=== PATIENT | female | born 1945 | race Two or more races ===

== ENCOUNTER 2025-03-02 16:12 | Inpatient (IN) | payer MEDICARE, OTHER, MEDICAID ==
[~2025-03-02] VITALS: Ht 157.5 cm; Wt 62.5 kg
--- NOTE | 2025-03-02 18:29 | ED.PDOC ---
History of Present Illness HPI Comments 79F presents to the ER w/ prior MHx of arthritis, Stage 4 Auto Immune Jewett; SHx of Cholecystectomy, Tonsillectomy, Back Sx, Right leg Sx and the c/c of Gen weak. Pt reports on being "very very tired" for the past 3 weeks w/ CP/SOB. Denies chills, fever, N/V/D. Denies any other associated symptom's, modifiers, or recent injuries or sick contact at this time. Chief Complaint: General Weakness Time Seen by MD: 18:15 Reviewed Notes: Nurses Notes, Medications, Allergies Allergies: Uncoded Allergies: DUST (Allergy, Unknown, 03/02/25) Information Source: Patient, Spouse Mode of Arrival: Ambulatory Severity: Moderate Timing: Weeks Duration: Since onset Prehospital treatment: None Past Medical History PAST MEDICAL HISTORY: Arthritis Past Medical History (Other): Stage 4 Autoimmune Jewett Surgical History: Cholecystectomy, Tonsillectomy Surgical History (Other): Back Sx, Right Leg Sx IT PROJECT LEAD History: No Pertinent IT PROJECT LEAD History Family History Family History: Reviewed,noncontributory to illness, Family hx of DM Social History Smoker: Cigarettes Alcohol: Denies ETOH Use Drugs: Denies Drug Use Lives In: Home Constitutional: reports: weakness; denies: chills, diaphoresis, fatigue, fever, malaise, sweats, others EENTM: denies: blurred vision, double vision, ear bleeding, ear discharge, ear drainage, ear pain, ear ringing, eye pain, eye redness, hearing loss, mouth pain, mouth swelling, nasal discharge, nose bleeding, nose congestion, nose pain, photophobia, tearing, throat pain, throat swelling, voice changes, others Respiratory: reports: shortness of breath; denies: cough, hemoptysis, orthopnea, SOB at rest, SOB with excertion, stridor, wheezing, others Cardiovascular: reports: chest pain; denies: dizzy spells, diaphoresis, Dyspnea on exertion, edema, irregular heart beat, left arm pain, lightheadedness, palpitations, PND, syncope, others Gastrointestinal: denies: abdomen distended, abdominal pain, blood streaked bowels, constipated, diarrhea, dysphagia, difficulty swallowing, hematemesis, melena, nausea, poor appetite, poor fluid intake, rectal bleeding, rectal pain, vomiting, others Genitourinary: denies: abnormal vagina bleeding, burning, dyspareunia, dysuria, flank pain, frequency, hematuria, incontinence, pain, , vagina discharge, urgency, others Neurological: denies: dizziness, fainting, headache, left sided numbness, left sided weakness, numbness, paresthesia, pre-existing deficit, right sided numbness, right sided weakness, seizure, speech problems, tingling, tremors, weakness, others Musculoskeletal: denies: back pain, gout, joint pain, joint swelling, muscle pain, muscle stiffness, neck pain, others Integumetry: denies: bruises, change in color, change in hair/nails, dryness, laceration, lesions, lumps, rash, wounds, others Allergic/Immunocompromised: denies: Difficulty Healing, Frequent Infections, Hives, Itching, others Hematologic/Lymphatic: denies: anemia, blood clots, easy bleeding, easy bruising, swollen glands, others Endocrine: denies: excessive hunger, excessive sweating, excessive thirst, excessive urination, flushing, intolerance to cold, intolerance to heat, unexplained weight gain, unexplained weight loss, others Psychiatric: denies: anxiety, bipolar disorder, depression, hopeless, panic disorder, schizophrenia, sleepless, suicidal, others All Other Systems: Reviewed and Negative Physical Exam General Appearance: Moderate Distress HEENT: Pale Conjuntivae (L), Pale Conjuntivae (R), Pharynx Normal, TMs Normal Neck: Full Range of Motion, Non-Tender, Normal, Normal Inspection Respiratory: Chest Non-Tender, Lungs Clear, No Accessory Muscle Use, No Respiratory Distress, Normal Breath Sounds Cardiovascular: No Edema, No JVD, No Murmur, No Gallop, Normal Peripheral Pulses, Regular Rate/Rhythm Breast Exam: Deferred Gastrointestinal: No Organomegaly, Non Tender, No Pulsatile Mass, Normal Bowel Sounds, Soft Genitalia: Deferred Pelvic: Deferred Rectal: Deferred Extremities: No calf tenderness, Normal capillary refill, Normal inspection, Normal range of motion, Non-tender, No pedal edema Musculoskeletal : Apperance: Normal Neurologic: Alert, executive search consultant II-XII nml as Tested, Motor Weakness, Normal Affect, Normal Mood, No Sensory Deficits Cerebellar Function: Normal Reflexes: Normal Skin: Dry, Normal Color, Warm Lymphatic: No Adenopathy Was a procedure done? Was a procedure done?: No EKG EKG : Pulse Rate (adult): 82 Elida: Normal Cardiac Rhythm: NSR Block: None Hypertrophy: None ST: Normal Differential Dx Considerations may include: ACS, PR, generalized weakness, electrolyte imbalance X-Ray, Labs, Meds, VS Vital Signs Date Time Temp Pulse Resp B/P (MAP) Pulse Ox O2 Delivery O2 Flow Rate FiO2 03/02/25 18:29 82 03/02/25 16:31 82 03/02/25 16:12 97.3 89 14 139/87 (104) 98 97.3 Lab Test 03/02/25 19:24 03/02/25 18:39 03/02/25 16:34 Range/Units Troponin I High Sensitivity < 3 L < 3 L </=34 ng/L White Blood Count 6.6 4.4-10.8 10^3/uL Red Blood Count 4.45 4.0-5.20 10^6/uL Hemoglobin 13.2 12.2-16.2 g/dL Hematocrit 38.4 36.0-46.0 % Mean Corpuscular Volume 86.2 80.0-100.0 fL Mean Corpuscular Hemoglobin 29.5 28.0-32.0 pg Mean Corpuscular Hemoglobin Concent 34.3 32.0-36.0 g/dL Red Cell Distribution Width 17.0 H 11.8-14.3 % Platelet Count 316 140-450 10^3/uL Mean Platelet Volume 8.2 6.9-10.8 fL Neutrophils (%) (Auto) 68.5 37.0-80.0 % Lymphocytes (%) (Auto) 18.3 10.0-50.0 % Monocytes (%) (Auto) 10.1 0.0-12.0 % Eosinophils (%) (Auto) 2.7 0.0-7.0 % Basophils (%) (Auto) 0.4 0.0-2.0 % Neutrophils # (Auto) 4.5 1.6-8.6 10 ^3/uL Lymphocytes # (Auto) 1.2 0.4-5.4 10 ^3/uL Monocytes # (Auto) 0.7 0-1.3 10 ^3/uL Eosinophils # (Auto) 0.2 0-0.8 10 ^3/uL Basophils # (Auto) 0 0-0.2 10 ^3/uL Nucleated Red Blood Cells 0.1 % Sodium Level 139 136-145 mmol/L Potassium Level 3.8 3.5-5.1 mmol/L Chloride Level 106 98-107 mmol/L Carbon Dioxide Level 27 20-31 mmol/L Anion Gap 6 5-15 Blood Urea Nitrogen 18 9-23 mg/dL Creatinine 0.82 0.550-1.02 mg/dL Glomerular Filtration Rate Calc 73 >90 mL/min BUN/Creatinine Ratio 22.0 H 10.0-20.0 Serum Glucose 89 74-106 mg/dL Calcium Level 9.6 8.7-10.4 mg/dL POC Glucose 82 70-106 mg/dl IV Hep-Lock has been established The CBC and chemistry panel within normal limits The troponin levels negative The patient was being admitted at this time The chest x-ray shows: No sign of any abnormalities The patient was being admitted at this time Images Reviewed?: Images reviewed and evaluated by me Time of 1ST Reevaluation: 18:45 Reevaluation 1ST: Unchanged Patient Education/Counseling: Diagnosis, Treatment, Prognosis Family Education/Counseling: Diagnosis, Treatment, Prognosis Departure 1 Departure Time of Disposition: 20:13 Impression: Primary Impression: Autonomic dysfunction Additional Impressions: Acute chest pain Acute myocardial ischemia Disposition: 09 ADMITTED INPATIENT Admit to: Tele Condition: Fair Critical Care Note Critical Care Time?: No Stability Stability form required: Yes Unstable for transfer: Telemetry monitoring (Telemetry monitoring required), ED Physician Assesment (Clinical assesment) Heart Score Heart Score: Heart Score Response (Comments) Value History Moderate Suspicious 1 EKG Normal 0 Age >65 2 Risk Factors 1 or 2 risk factors 1 Troponin Normal limit 0 Total 4 I personally scribed for SHAKIRA DARDEN MD ([email or web address]) on 03/02/25 at 18:29. Electronically submitted by Caleb Santos ([email or web address]). SHAKIRA DARDEN MD March 02, 2025 18:29
--- NOTE | 2025-03-02 18:44 | DVH ---
XY CHEST TWO VIEWS ROUTINE INDICATION: weakness TECHNIQUE: Two views of the chest COMPARISON: None FINDINGS/IMPRESSION: LUNGS: No pleural effusion, consolidation, or pneumothorax MEDIASTINUM: Unremarkable BONES: No acute osseous abnormality OTHER: None
[2025-03-02 19:10] LABS: Basophils # (auto) 0 10 ^3/uL (0-0.2); Basophils % (auto) 0.4 % (0.0-2.0); Eosinophils # (auto) 0.2 10 ^3/uL (0-0.8); Eosinophils % (auto) 2.7 % (0.0-7.0); Hematocrit 38.4 % (36.0-46.0); Hemoglobin 13.2 g/dL (12.2-16.2); Lymphocytes # (auto) 1.2 10 ^3/uL (0.4-5.4); Lymphocytes % (auto) 18.3 % (10.0-50.0); Mean Corpuscular Hemoglobin 29.5 pg (28.0-32.0); Mean Corpuscular Hgb Conc. 34.3 g/dL (32.0-36.0); Mean Corpuscular Volume 86.2 fL (80.0-100.0); Monocytes # (auto) 0.7 10 ^3/uL (0-1.3); Monocytes % (auto) 10.1 % (0.0-12.0); Neutrophils # (auto) 4.5 10 ^3/uL (1.6-8.6); Neutrophils % (auto) 68.5 % (37.0-80.0); Nucleated Red Blood Cells % 0.1 %; Platelet Count (auto) 316 10^3/uL (140-450); Red Blood Cells 4.45 10^6/uL (4.0-5.20); White Blood Cell 6.6 10^3/uL (4.4-10.8)
[2025-03-02 19:17] LABS: Chloride 106 mmol/L (98-107); Potassium 3.8 mmol/L (3.5-5.1); Sodium 139 mmol/L (136-145)
[2025-03-02 19:18] LABS: Anion Gap 6 (5-15); Carbon Dioxide 27 mmol/L (20-31)
[2025-03-02 19:19] LABS: Calcium 9.6 mg/dL (8.7-10.4)
[2025-03-02 19:23] LABS: Blood Urea Nitrogen 18 mg/dL (9-23); Glucose 89 mg/dL (74-106)
--- NOTE | 2025-03-02 20:34 | ECG ---
[facility] Test Date: 2025-03-02 Test Time: 16:31:16 Pat Name: TRINA GRIDER Department: ER Room: 0218T Gender: F Child Protection Specialist: VINH : 1945 Requested By: SHAKIRA DARDEN Order Number: [id number] Reading MD: Jose Carlos Rushing Measurements Intervals Satin Rate: 82 P: -16 IA: 147 QRS: 19 QRSD: 80 T: 39 QT: 417 QTc: 487 Interpretive Statements Sinus rhythm Borderline prolonged QT interval Electronically Signed On 03-04-2025 22:23:01 PDT by Jose Carlos Rushing Please click the below link to view image of tracing.
[2025-03-02] MEDS ORDERED: NITROGLYCERIN 0.4 MG SL TAB SL PRN (22:00)
[2025-03-02] MEDS ORDERED: MORPHINE SULFATE INJ 2 MG/ml SYRG IV PRN (22:00)
[2025-03-02] MEDS ORDERED: DOCUSATE SOD 100 MG CAP PO PRN (22:00)
[2025-03-02] MEDS: PANTOPRAZOLE 40 MG TAB PO ONE (22:30)
[2025-03-02 22:42] LABS: Albumin 3.9 g/dL (3.2-4.8); Bilirubin, Total 0.9 mg/dL (0.2-1.0); CRP High Sensitivity 0.54 mg/dL (<1.0)
[2025-03-02 22:43] LABS: Bilirubin, Direct 0.5 mg/dL (<0.3); Total Protein 9.3 g/dL (5.7-8.2)
[2025-03-02 23:02] LABS: Erythrocyte Sedimentation Rate 61 mm/hr (0-20)
[2025-03-02 23:49] VITALS: RESP 18
[2025-03-03] VITALS (10 sets, daily range): BP systolic 91–128; BP diastolic 50–73; PULSE 74–93; RESP 16–18; TEMP 97.6–98.3; O2SAT 16–98
--- NOTE | 2025-03-03 00:57 | DVHHP2 ---
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 As per patient she has been having feeling weak for last 3 weeks tired and fatigued, patient also endorsed that she has been having chest pain for last 3 weeks initially it was sharp, 10/10, radiating to the neck and left arm, today it was 3/10, no aggravating or relieving factor. On further inquiry patient also endorsed shortness of breast for last 3 weeks increased with the exertion. Patient also reported dry cough for last 3 weeks. Patient denied any fever, diarrhea, sick contact, weight change, dysarthria. . Initial lab workup revealed Troponin and BNP with a normal limit. AST 88, ALT 43, alkaline phosphatase 149, ESR 61, Chest x-ray no acute cardiopulmonary disease. Ultrasound of the gallbladder revealed-Mild hepatomegaly. S/p chol ecystectomy. Dilated common bile duct measuring up to 15 mm which may be within normal limits. Negative for flu and COVID 19. 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 Gastrointestinal- denies any rectal bleeding, nausea or vomiting Musculoskeletal-denies acute joint swelling or tenderness or redness Neurological- denies acute dysarthria, dysphagia, change in vision Psychiatry- denies depression or SI or HI Skin- denies acute rash or purpura Allergies: Uncoded Allergies: DUST (Allergy, Unknown, 03/02/25) Medications Current Medications Medications Dose Ordered Sig/Rosemary Route Start Time Stop Time Status Last Admin Dose Admin Sodium Chloride 10 ml Q8HR IV 03/02/25 22:00 Enoxaparin Sodium 40 mg DAILY SC 03/03/25 10:00 Nitroglycerin 0.4 mg Q5MINP PRN SL 03/02/25 22:00 Morphine Sulfate 2 mg Q30M PRN IV 03/02/25 22:00 Pantoprazole Sodium 40 mg DAILY@0600 PO 03/03/25 06:00 Lactulose 30 ml BID PO 03/03/25 10:00 Exam Vital Signs Vital Signs Date Time Temp Pulse Resp B/P (MAP) Pulse Ox O2 Delivery O2 Flow Rate FiO2 03/02/25 23:49 18 Room Air* 0 21 21 03/02/25 20:46 98.5 89 140/80 (100) 99 98.5 Exam General examination- awake, alert, HEENT- PEERLA, no acute nasal discharge Cardiovascular- S1-S2 audible, rate and rhythm regular, no murmur Respiratory- CTAB, no wheeze or rhonchi Gastrointestinal-nontender, bowel sound+. Nondistended Musculoskeletal-no acute joint swelling or tenderness or redness Lower extremity- trace leg edema+ Neurological- cranial nerves intact, no acute dysarthria or dysphagia Psychiatry- denies depression or SI or HI Skin- no acute rash or purpura Labs/Xrays Labs Test 03/02/25 22:31 03/02/25 19:24 03/02/25 18:39 03/02/25 16:34 Range/Units Ammonia 15 11-32 umol/L Total Bilirubin 0.9 0.2-1.0 mg/dL Direct Bilirubin 0.5 H <0.3 mg/dL Aspartate Amino Transferase (AST) 88 H 13-40 U/L Alanine Aminotransferase (ALT) 53 H 7-40 U/L Alkaline Phosphatase 149 H 46-116 U/L Troponin I High Sensitivity < 3 L </=34 ng/L C-Reactive Protein High Sensitivity 0.54 <1.0 mg/dL Total Protein 9.3 H 5.7-8.2 g/dL Albumin 3.9 3.2-4.8 g/dL White Blood Count 6.6 4.4-10.8 10^3/uL Red Blood Count 4.45 4.0-5.20 10^6/uL Hemoglobin 13.2 12.2-16.2 g/dL Hematocrit 38.4 36.0-46.0 % Mean Corpuscular Volume 86.2 80.0-100.0 fL Mean Corpuscular Hemoglobin 29.5 28.0-32.0 pg Mean Corpuscular Hemoglobin Concent 34.3 32.0-36.0 g/dL Red Cell Distribution Width 17.0 H 11.8-14.3 % Platelet Count 316 140-450 10^3/uL Mean Platelet Volume 8.2 6.9-10.8 fL Neutrophils (%) (Auto) 68.5 37.0-80.0 % Lymphocytes (%) (Auto) 18.3 10.0-50.0 % Monocytes (%) (Auto) 10.1 0.0-12.0 % Eosinophils (%) (Auto) 2.7 0.0-7.0 % Basophils (%) (Auto) 0.4 0.0-2.0 % Neutrophils # (Auto) 4.5 1.6-8.6 10 ^3/uL Lymphocytes # (Auto) 1.2 0.4-5.4 10 ^3/uL Monocytes # (Auto) 0.7 0-1.3 10 ^3/uL Eosinophils # (Auto) 0.2 0-0.8 10 ^3/uL Basophils # (Auto) 0 0-0.2 10 ^3/uL Nucleated Red Blood Cells 0.1 % Erythrocyte Sedimentation Rate 61 H 0-20 mm/hr Sodium Level 139 136-145 mmol/L Potassium Level 3.8 3.5-5.1 mmol/L Chloride Level 106 98-107 mmol/L Carbon Dioxide Level 27 20-31 mmol/L Anion Gap 6 5-15 Blood Urea Nitrogen 18 9-23 mg/dL Creatinine 0.82 0.550-1.02 mg/dL Glomerular Filtration Rate Calc 73 >90 mL/min BUN/Creatinine Ratio 22.0 H 10.0-20.0 Serum Glucose 89 74-106 mg/dL Calcium Level 9.6 8.7-10.4 mg/dL Magnesium Level 1.9 1.6-2.6 mg/dL B-Type Natriuretic Peptide 18.52 0-100 pg/mL Thyroid Stimulating Hormone (TSH) 1.25 0.55-4.78 uIU/mL POC Glucose 82 70-106 mg/dl Assessment/Plan Assessment/Plan Assessment and plan Chest pain with shortness of breath likely due to congestive heart failure, systolic versus diastolic Chest pain, rule out acute coronary syndrome Shortness of breaths likely due to congestive heart failure Generalized weakness likely from heart failure Cirrhosis of liver Rheumatoid arthritis Transaminitis Hepatomegaly Dilated common bile duct up to 15 mm Ultrasound of the gallbladder revealed-Mild hepatomegaly. S/p cholecystectomy. Dilated common bile duct measuring up to 15 mm which may be within normal limits. Negative for flu and COVID 19 Plan Ordered echo 2D Ordered hepatic panel Lactulose 30 mL b.i.d. On pantoprazole Restarted home medication Seroquel On Lovenox DVT prophylaxis Ordered ammonia level Ordered COVID-19 and flu test Goals of care, Code status ; discussed with >15 minutes PUD prophylaxis: Pantoprazole DVT prophylaxis: Lovenox Plan discussed with Dr. Elder , nursing staff, Total time spent on patient evaluation, chart review, assessment and plan, discussion discussion >35 minutes Plan discussed with: Patient, Spouse (RN), Other My Orders Orders - GERMAN[facility] Procedure Category Date Status Time Admit ADMIT 03/02/25 Transmitted 21:53 Code Status CODE 03/02/25 Transmitted 21:53 Sodium Chloride Lock PHA 03/02/25 In Process (Saline Lock Ns) 22:00 Enoxaparin Sodium PHA 03/03/25 In Process (Lovenox) 10:00 Complete Blood Count LAB 03/03/25 Logged 04:00 Comprehensive LAB 03/03/25 Logged Metabolic Panel 04:00 Echo 2d Mode Cardiac US 03/02/25 Logged DOP 21:53 Nitroglycerin PHA 03/02/25 In Process Sublingual (Ntrostat 22:00 Morphine Sulfate PHA 03/02/25 In Process Injection 22:00 Oxygen By Nasal RT 03/02/25 Transmitted Cannula 21:53 Stat Ekg For Chest ERIN 03/02/25 In Process Pain 21:53 Notify Of Changes ERIN 03/02/25 In Process From Base 21:53 Head Waiter/Waitress For ERIN 03/02/25 In Process 24 Hours 21:53 Emergency Dysrhythmia ERIN 03/02/25 In Process Protocol 21:53 Rhythm Strips Once ERIN 03/02/25 In Process Every Shift 21:53 Drug Screen LAB 03/02/25 Logged 22:14 Covid19 Antigen Lilliam LAB 03/02/25 Logged Rapid Influenza A&B LAB 03/02/25 Logged 22:14 Creatine Kinase Ckmb LAB 03/02/25 In Process 22:14 Danitza Direct W/Reflex LAB 03/02/25 In Process To Comp. 22:14 Pantoprazole Tablet PHA 03/03/25 In Process (Protonix Tablet) 06:00 Lactulose Oral PHA 03/03/25 In Process 10:00 LIVER US 03/02/25 Taken 22:20 Date of Service: March 02, 2025 Billing Provider: IGNACIO ELDER MD Common Visit Codes: 56614-VWOGOWO INP/OBS CARE (HIGH) Secondary Visit Codes: 16275-[id number] CARE PLAN 30 MINUTES MIGDALIA PORTER RESIDENT March 03, 2025 00:57
--- NOTE | 2025-03-03 01:59 | DVH ---
INDICATION: CIRRHOSIS OF LIVER TECHNIQUE: Multiple real-time sonographic images of the abdomen were obtained. COMPARISON: None FINDINGS: Liver is mildly enlarged measuring 17.8 cm but the echogenicity is within normal limits with no focal lesions identified. No intrahepatic biliary ductal dilatation noted. S/p cholecystectomy. The common bile duct is dilated measuring up to 15 mm. Right kidney measures 10.3 cm and appears unremarkable with no hydronephrosis. Visualized pancreas appears unremarkable. No free fluid/fluid collection. IMPRESSION: Mild hepatomegaly. S/p cholecystectomy. Dilated common bile duct measuring up to 15 mm which may be w ithin normal limits. Recommend correlation with blood work.
[2025-03-03] MEDS ORDERED: AZAT50TA43 PO (02:06)
[2025-03-03] MEDS ORDERED: PANT40PA PO (02:06)
[2025-03-03] MEDS ORDERED: MONT4CHW74 PO (02:06)
[2025-03-03] MEDS ORDERED: HYDR-4798 PO (02:06)
[2025-03-03] MEDS ORDERED: LINA145C OR (02:06)
[2025-03-03] MEDS ORDERED: FURO20TA3 PO (02:06)
[2025-03-03] MEDS ORDERED: URSO1TAB7 PO (02:06)
[2025-03-03] MEDS ORDERED: AMPH10TA2 PO (02:07)
[2025-03-03] MEDS ORDERED: QUET200T30 PO (02:07)
[2025-03-03 02:36] LABS: COVID19 ANTIGEN SOFIA FIA NEGATIVE (NEGATIVE); Rapid Influenza A Negative (Negative); Rapid Influenza B Negative (Negative)
[2025-03-03 02:42] LABS: INR 1.18 (0.9-1.15); Partial Thromboplastin Time 31.8 SEC (24.5-34.5); Prothrombin Time 12.3 sec (9.3-11.8)
[2025-03-03] MEDS: LACTULOSE 20Gm/30ML SOLN PO ONE (03:24)
[2025-03-03] MEDS: SODIUM CHLOR 0.9% PF (SALINE LOCK) 10ML VIAL/SYR IV SCH (03:24)
[2025-03-03] MEDS: QUEtiapine FUMARATE 100 MG TAB PO ONE (03:25)
[2025-03-03] MEDS: PANTOPRAZOLE 40 MG TAB PO SCH (03:26)
[2025-03-03] MEDS: HYDROcodone-ACET 10/325MG TAB PO SCH (03:26)
[2025-03-03] MEDS: FUROSEMIDE 20 MG TAB PO SCH (05:22)
[2025-03-03 07:59] LABS: Basophils # (auto) 0 10 ^3/uL (0-0.2); Basophils % (auto) 0.4 % (0.0-2.0); Eosinophils # (auto) 0.2 10 ^3/uL (0-0.8); Eosinophils % (auto) 4.3 % (0.0-7.0); Hematocrit 33.8 % (36.0-46.0); Hemoglobin 11.5 g/dL (12.2-16.2); Lymphocytes # (auto) 0.9 10 ^3/uL (0.4-5.4); Lymphocytes % (auto) 19.6 % (10.0-50.0); Mean Corpuscular Hemoglobin 29.3 pg (28.0-32.0); Mean Corpuscular Volume 86.3 fL (80.0-100.0); Monocytes # (auto) 0.6 10 ^3/uL (0-1.3); Monocytes % (auto) 12.8 % (0.0-12.0); Neutrophils % (auto) 62.9 % (37.0-80.0); Nucleated Red Blood Cells % 0.1 %; Platelet Count (auto) 235 10^3/uL (140-450); Red Blood Cells 3.92 10^6/uL (4.0-5.20); Red Cell Distribution Width 16.5 % (11.8-14.3); White Blood Cell 4.8 10^3/uL (4.4-10.8)
[2025-03-03 08:08] LABS: Alanine Aminotransferase 40 U/L (7-40); Anion Gap 7 (5-15); BUN/Creatinine Ratio 17.2 (10.0-20.0); Blood Urea Nitrogen 15 mg/dL (9-23); Calcium 8.9 mg/dL (8.7-10.4); Carbon Dioxide 25 mmol/L (20-31); Glucose 90 mg/dL (74-106); Potassium 3.5 mmol/L (3.5-5.1); Sodium 143 mmol/L (136-145); Total Protein 7.5 g/dL (5.7-8.2)
[2025-03-03 08:10] LABS: Bilirubin, Total 0.5 mg/dL (0.2-1.0)
[2025-03-03 08:17] LABS: Albumin 3.1 g/dL (3.2-4.8); Alkaline Phosphatase 123 U/L (46-116); Aspartate Aminotransferase 69 U/L (13-40); Chloride 111 mmol/L (98-107)
[2025-03-03 08:26] LABS: Urine Amorphous Crystal FEW /hpf (None Seen); Urine Bacteria FEW /hpf (None Seen); Urine Blood Negative /uL (Negative); Urine Clarity Clear (Clear); Urine Color Yellow (Yellow); Urine Protein, UAD Negative (Negative); Urine Specific Gravity 1.011 (1.001-1.035); Urine Squamous Epithelial Cell FEW /hpf (<5); Urine Urobilinogen 2 mg/dL (Negative); Urine WBC 18 /HPF (0-5)
[2025-03-03 08:28] LABS: Amphetamine Screen, Urine Pos (NEGATIVE)
[2025-03-03 08:29] LABS: Opiate Scree,Urine Neg (NEGATIVE)
[2025-03-03 08:32] LABS: Barbiturate Scree,Urine Neg (NEGATIVE); Benzodiazephine Screen, Urine Neg (NEGATIVE); Cannabinoid Screen, Urine Neg (NEGATIVE); Cocaine Screen, Urine Neg (NEGATIVE); Phencyclidine Screen, Urine Neg (NEGATIVE)
[2025-03-03] MEDS: ENOXAPARIN SOD 40 MG/0.4 ML SYRINGE SC SCH (09:19)
[2025-03-03] MEDS: LACTULOSE 20Gm/30ML SOLN PO SCH (09:19)
--- NOTE | 2025-03-03 14:22 | DVHSR ---
APPROVED REPORT EXAM: Two-dimensional and M-mode echocardiogram with Doppler and color Doppler. Blood Pressure: 94/53 mmHg INDICATION HF RISK FACTORS Height: 5'2", Weight: 136 DIMENSIONS LVDd3.5 (3.8-5.7cm)LA (2D)3.2 (1.9-4.0cm)Aortic Root3.4 (2.0-3.7cm) LVDs2.4 (2.5-4.0cm)LA (MM) (1.9-4.0cm)Aortic Cusp Exc0.8 (1.5-2.0cm) EF (%) 60.0 (55-70%)Rt. Atrium3.7 (1.9-4.0cm)Asc. Aorta cm IVSd1.0 (0.7-1.1cm)RV (D) (1.8-2.4cm) PWd0.9 (0.7-1.1cm) Mitral Valve MitralMitral Stenosis E wave0.50m/sMV Mean GR.mmHg A wave0.95m/sMV Peak GR.mmHg E/A ratio0.52D MVAcm2 DECEL [id number] 1/2 Timems Aortic Valve Aortic ValveAortic Stenosis V11.19m/Jailene Mean GR.12mmHg V22.28m/Jailene Peak GR.21mmHg LVOT Diameter1.9 (1.8-2.4cm)Doppler AVA1.48cm2 2D AVA1.47cm2 Pulmonic Valve V20.96m/s Tricuspid Valve TR Velocity2.31m/s [id number] Other Information Technically limited study due to body habitus. Conclusion lvef 70% sigmoid septum/ lvh normal rv function mild aortic stenosis
--- NOTE | 2025-03-03 15:52 | DVHPNRES ---
Progress Note Date Seen: March 03, 2025 Resident Creating Document: EVERT SAHNI RESIDENT Medical Necessity Reason Pt with a Central, PICC or Fol: No Subjective Review of Systems Patient is a 79-year-old female with a past medical history of autoimmune hepatitis with liver cirrhosis, arthritis, ADHD presented to the ED with a chief complaint of lower chest pain. Patient reported of lower chest epigastric pain which started about 3 weeks ago, nonradiating, no exacerbating or relieving factors, no exacerbation with the food, associated with early satiety but no symptoms of GERD. She reported feeling weak and shortness of breath by the end of the day. No orthopnea, PND. Does not report of weight loss, night sweats. Patient reports of constipation and she has a bowel movement every 3 days and is currently on linaclotide at home for constipation. Patient denied have any fever, sick contacts, travel. Initial 12 lead EKG showed no ST or T-wave changes, sinus rhythm. Troponin levels were within normal limits Past medical history: as per HPI Past surgical history: Cholecystectomy, right leg surgery and back surgery Social history: Patient lives with the family and currently smokes about 7-8 cigarettes per day and has a long smoking history( more than 40 years), denies any alcohol or substance use Home medications: Azathioprine 50 mg daily, Seroquel 200 mg at night, ursodiol 250 mg daily, linaclotide 140 mcg daily, Adderall 5 mg b.i.d., Lasix 20 mg as needed Review of systems Patient seen and examined at the bedside Reports feeling weak Denies chest pain but reports of epigastric pain Bilateral lower abdominal quadrant tenderness Objective vital signs Vital Sign Date Time Temp Pulse Resp B/P (MAP) Pulse Ox O2 Delivery O2 Flow Rate FiO2 03/03/25 11:53 97.7 79 16 91/50 (64) 95 97.7 03/03/25 08:00 Room Air* 0 21 Total Intake and Output 03/02/25 03/02/25 03/03/25 15:00 23:00 07:00 Intake Total 400 ml Balance 400 ml medications Current Medications Medications Dose Ordered Sig/Rosemary Route Start Time Stop Time Status Last Admin Dose Admin Sodium Chloride 10 ml Q8HR IV 03/02/25 22:00 03/03/25 14:26 10 ML Enoxaparin Sodium 40 mg DAILY SC 03/03/25 10:00 03/03/25 09:19 40 MG Pantoprazole Sodium 40 mg DAILY@0600 PO 03/03/25 06:00 03/03/25 03:26 40 MG Lactulose 30 ml BID PO 03/03/25 10:00 03/03/25 09:19 30 ML Acetaminophen/ Hydrocodone Bitart 1 tab TID PO 03/03/25 06:00 03/03/25 14:27 1 TAB Quetiapine Fumarate 200 mg HS PO 03/03/25 22:00 Patient Own Medication 250 mg BID PO 03/03/25 10:00 Furosemide 40 mg DAILY IV 03/04/25 10:00 Examination Gen - no pallor, no icterus, no cyanosis, no clubbing, no LAD, no edema . Skin - Patients skin is warm and dry. HEENT - normocephalic, atraumatic, moist mucous membranes. Neck - full ROM, no LAD, no JVD Pulmonary - B/L equal breath sounds, minimal coarse crackles in the bilateral lower lobe, no wheezing, no stridor. cardiovascular - regular S1,S2 heard, no added sounds, no murmurs heard. peripheral pulses normal radial 2+, pedal 2+. capillary refill normal <2 secs. GI - soft abdomen, mild tenderness in the bilateral lower quadrants. no hepatosplenomegaly. Bowel sounds normoactive Neurological - Patient is A/O X 3 . Bilateral upper extremity strength 5/5, bilateral lower extremity strength 5/5, no facial droop, normal speech, no tremor, no focal deficits laboratory and microbiology Laboratory Tests 03/03/25 06:02 Test 03/03/25 06:02 Range/Units Serum Glucose 90 74-106 mg/dL Labs and/or images reviewed: Labs reviewed by me, Image(s) reviewed by me Problem List/Assessment/Plan Problem List/Assessment/Plan Chest pain, ACS ruled out Possible diastolic heart dysfunction - Lasix daily - echo shows LVEF 70%, LVH History of autoimmune hepatitis with liver cirrhosis Constipation Epigastric pain ? Possible gastritis - LFTs down trending - continue on azathioprine - lactulose 30 mL p.o. b.i.d. - Protonix daily - ursodiol 250 mg b.i.d. - Carafate 1 g b.i.d. ? COPD Tobacco use disorder - long smoking history - no oxygen requirement - needs workup with the bellows filler - counseled on tobacco use cessation for 17 minutes PUD prophylaxis: Protonix DVT prophylaxis: Enoxaparin Goals of care discussed with the patient for 20 minutes. Full code Plan discussed with Plan discussed with: Patient, Other (RN ( Silvano )) My Orders My Orders Orders - EVERT SAHNI RESIDENT Procedure Category Date Status Time Urine Bacterial DORA 03/03/25 Uncollected Culture 10:24 Furosemide Injection PHA 03/04/25 In Process (Lasix Injection) 10:00 Addendum Addendum Addendum I was physically present for the arana portions of the service provided to patient by THE RESIDENT. I have reviewed the documentation, discussed the case with resident and agree with the resident's documentation except as noted. Also the patient's clinical case was discussed with the patient's nurse. This medical document was created using an electronic medical record system with computerized dictation system. Although this document has been carefully reviewed, there might still be some phonetic and typographical errors. These areas are purely typographical due to imperfections of the software programs, and do not reflect any compromise in the patient's medical care. Late signature. Date of Service: March 03, 2025 Billing Provider: MARIANNE BYNUM MD Common Visit Codes: 04433-[id number] INP/OBS CARE(HIGH) Secondary Visit Codes: [id number]-MVPCF CHNG SMOKING >10MIN (17 minutes), 53536- ADVANCED CARE PLAN 30 MINUTES (20 minutes) EVERT SAHNI RESIDENT March 03, 2025 15:52 MARIANNE BYNUM MD Mar 04, 2025 12:57
[2025-03-03] MEDS: azaTHIOprine 50 MG TAB PO ONE (16:16)
[2025-03-03] MEDS: SUCRALFATE 1 GM/10 ML ORAL SUSP PO ONE (16:16)
[2025-03-03] MEDS: cefTRIAXone 1GM/50ML D5W 50 ML IV ONE (17:44)
[2025-03-03] MEDS: QUEtiapine FUMARATE 100 MG TAB PO SCH (21:08)
[2025-03-03] MEDS: SUCRALFATE 1 GM/10 ML ORAL SUSP PO SCH (21:08)
[2025-03-04] VITALS (8 sets, daily range): BP systolic 97–116; BP diastolic 53–71; PULSE 73–86; RESP 16–20; TEMP 96–98.2; O2SAT 94–97
[2025-03-04 05:33] LABS: Basophils # (auto) 0 10 ^3/uL (0-0.2); Basophils % (auto) 0.4 % (0.0-2.0); Eosinophils # (auto) 0.2 10 ^3/uL (0-0.8); Eosinophils % (auto) 3.8 % (0.0-7.0); Hemoglobin 11.8 g/dL (12.2-16.2); Lymphocytes # (auto) 0.9 10 ^3/uL (0.4-5.4); Lymphocytes % (auto) 17.3 % (10.0-50.0); Mean Corpuscular Hemoglobin 29.1 pg (28.0-32.0); Mean Corpuscular Hgb Conc. 33.6 g/dL (32.0-36.0); Mean Corpuscular Volume 86.4 fL (80.0-100.0); Monocytes # (auto) 0.6 10 ^3/uL (0-1.3); Monocytes % (auto) 12.3 % (0.0-12.0); Neutrophils # (auto) 3.3 10 ^3/uL (1.6-8.6); Neutrophils % (auto) 66.2 % (37.0-80.0); Nucleated Red Blood Cells % 0.2 %; Platelet Count (auto) 219 10^3/uL (140-450); Red Blood Cells 4.05 10^6/uL (4.0-5.20); Red Cell Distribution Width 16.9 % (11.8-14.3); White Blood Cell 4.9 10^3/uL (4.4-10.8)
[2025-03-04 05:59] LABS: Anion Gap 5 (5-15); BUN/Creatinine Ratio 19.4 (10.0-20.0); Bilirubin, Total 0.5 mg/dL (0.2-1.0); Blood Urea Nitrogen 14 mg/dL (9-23); Carbon Dioxide 25 mmol/L (20-31); Glucose 91 mg/dL (74-106); Potassium 3.8 mmol/L (3.5-5.1); Sodium 143 mmol/L (136-145); Total Protein 7.4 g/dL (5.7-8.2)
[2025-03-04 06:00] LABS: Alanine Aminotransferase 40 U/L (7-40); Alkaline Phosphatase 117 U/L (46-116); Aspartate Aminotransferase 73 U/L (13-40); Calcium 8.6 mg/dL (8.7-10.4); Chloride 113 mmol/L (98-107)
[2025-03-04 08:07] LABS: Creatine Kinase CKMB 3.7 ng/mL (0.0-5.3)
[2025-03-04] MEDS: cefTRIAXone 1GM/50ML D5W 50 ML IV SCH (09:01)
[2025-03-04] MEDS: azaTHIOprine 50 MG TAB PO SCH (09:02)
[2025-03-04] MEDS ORDERED: FUROSEMIDE 40 MG/4 ML VIAL IV SCH (10:00)
--- NOTE | 2025-03-04 15:12 | DVH ---
ULTRASOUND ABDOMEN limited, 4 QUADRANTS INDICATION: ascitis Evaluate for ascites. TECHNIQUE: The four quadrants of the abdomen were scanned in lechuga-scale to assess for the presence of ascites. N o solid organ assessment was performed. FINDINGS/IMPRESSIONS: No ascites visualized at this time
--- NOTE | 2025-03-04 18:55 | DVHPNRES ---
Progress Note Date Seen: Mar 04, 2025 Resident Creating Document: LINDA BOWEN RESIDENT Medical Necessity Reason Pt with a Central, PICC or Fol: No Subjective Review of Systems Patient seen and examined at bedside Complaining of mild generalized abdominal distention No active chest pain, shortness of breath, any other symptoms Mild generalized weakness No any other new complaints, no overnight events. Objective vital signs Vital Sign Date Time Temp Pulse Resp B/P (MAP) Pulse Ox O2 Delivery O2 Flow Rate FiO2 03/04/25 17:00 96.0 79 18 97/57 (70) 96 96.0 03/04/25 08:00 Room Air* 0 21 Total Intake and Output 03/03/25 03/03/25 03/04/25 15:00 23:00 07:00 Intake Total 1050 ml 230 ml Output Total 400 ml Balance 650 ml 230 ml medications Current Medications Medications Dose Ordered Sig/Rosemary Route Start Time Stop Time Status Last Admin Dose Admin Sodium Chloride 10 ml Q8HR IV 03/02/25 22:00 03/04/25 09:02 10 ML Enoxaparin Sodium 40 mg DAILY SC 03/03/25 10:00 03/04/25 09:01 40 MG Pantoprazole Sodium 40 mg DAILY@0600 PO 03/03/25 06:00 03/04/25 05:52 40 MG Lactulose 30 ml BID PO 03/03/25 10:00 03/04/25 09:01 30 ML Acetaminophen/ Hydrocodone Bitart 1 tab TID PO 03/03/25 06:00 03/04/25 13:52 1 TAB Quetiapine Fumarate 200 mg HS PO 03/03/25 22:00 03/03/25 21:08 200 MG Patient Own Medication 250 mg BID PO 03/03/25 10:00 Azathioprine 50 mg DAILY PO 03/04/25 10:00 03/04/25 09:02 50 MG Sucralfate 1 gm BID@0600,2200 PO 03/03/25 22:00 03/04/25 05:51 1 GM Ceftriaxone Sodium 50 ml @ 100 mls/hr DAILY@09 IV 03/04/25 09:00 03/04/25 09:01 100 MLS/HR Examination General Appearance: Cooperative. Well developed. Well nourished. NAD Head Exam: Normal inspection Neck Exam: Normal inspection. Non-tender. Normal alignment Pulmonary/Respiratory: Chest non-tender. Clear bilateral breath sounds Cardiovascular/Chest: Regular rate and rhythm. No murmurs. No JVD. Peripheral Pulses: 2+ Radial (R). 2+ Radial (L). 2+ Pedal (R). 2+ Pedal (L) Abdominal Exam: Normal bowel sounds. Soft. Nontender. No hepatosplenomegaly. No masses, mildly distended abdomen, no fluid thrill. Ankle Exam: Negative ankle edema Lower extremities: Negative lower extremity edema Neuro/Mental Status: A&O x4. Coherent Thoughts/Psych: Normal thought pattern. Appropriate mood and affect. Good judgement and insight Appearance: In no acute distress Skin Exam: Normal inspection. Normal color. Warm. Dry laboratory and microbiology Laboratory Tests 03/04/25 05:12 Test 03/04/25 05:12 Range/Units Serum Glucose 91 74-106 mg/dL Labs and/or images reviewed: Labs reviewed by me, Image(s) reviewed by me Problem List/Assessment/Plan Problem List/Assessment/Plan Chest pain, ACS ruled out Possible diastolic heart dysfunction Left ventricular hypertrophy - Lasix daily - echo shows LVEF 70%, LVH History of autoimmune hepatitis with liver cirrhosis Constipation Epigastric pain Possible gastritis - LFTs down trending - continue on azathioprine - lactulose 30 mL p.o. b.i.d. - Protonix 40 mg p.o. daily - ursodiol 250 mg b.i.d. - Carafate 1 g b.i.d. -abdominal ultrasound: No ascites COPD, not exacerbation, PFT not available Tobacco use disorder - long smoking history - no oxygen requirement - needs workup with the budget clerk - counseled on tobacco use cessation PUD prophylaxis: Protonix DVT prophylaxis: Enoxaparin Physical therapy evaluation. Plan discussed with Plan discussed with: Patient, Other (RN) My Orders My Orders Orders - LINDA BOWEN Procedure Category Date Status Time Pt Request For Service PT 03/04/25 Logged 12:23 Abdomen Limited US 03/04/25 Resulted 12:23 Addendum Addendum Addendum I was physically present for the arana portions of the service provided to patient by THE RESIDENT. I have reviewed the documentation, discussed the case with resident and agree with the resident's documentation except as noted. Also the patient's clinical case was discussed with the patient's nurse. This medical document was created using an electronic medical record system with computerized dictation system. Although this document has been carefully reviewed, there might still be some phonetic and typographical errors. These areas are purely typographical due to imperfections of the software programs, and do not reflect any compromise in the patient's medical care. Late signature. Date of Service: Mar 04, 2025 Billing Provider: MARIANNE BYNUM MD Common Visit Codes: [id number] INP/OBS CARE(HIGH) LINDA BOWEN RESIDENT Mar 04, 2025 18:55 MARIANNE BYNUM MD Mar 05, 2025 05:32
[2025-03-05 01:00] VITALS: BP 84/43; PULSE 81; RESP 18; TEMP 98.6; O2SAT 94
[2025-03-05 05:00] VITALS: BP 99/65; PULSE 69; RESP 18; TEMP 96.8; O2SAT 96
[2025-03-05 08:00] VITALS: PULSE 68
[2025-03-05 08:34] VITALS: BP 111/65; PULSE 64; RESP 16; TEMP 98.5; O2SAT 96
[2025-03-05 09:32] LABS: Anion Gap 4 (5-15); BUN/Creatinine Ratio 13.6 (10.0-20.0); Blood Urea Nitrogen 9 mg/dL (9-23); Carbon Dioxide 26 mmol/L (20-31); Glucose 85 mg/dL (74-106); Sodium 140 mmol/L (136-145); Total Protein 7.4 g/dL (5.7-8.2)
[2025-03-05 09:33] LABS: Bilirubin, Total 0.7 mg/dL (0.2-1.0)
[2025-03-05 09:39] LABS: Alanine Aminotransferase 41 U/L (7-40); Alkaline Phosphatase 118 U/L (46-116); Aspartate Aminotransferase 82 U/L (13-40); Calcium 8.6 mg/dL (8.7-10.4); Chloride 110 mmol/L (98-107)
[2025-03-05] MEDS: HYDROcodone-ACET 10/325MG TAB PO PRN (11:32)
[2025-03-05 12:35] VITALS: BP 101/58; PULSE 81; RESP 16; TEMP 97.9; O2SAT 94
--- NOTE | 2025-03-05 14:24 | DVHDSRES ---
Discharge Summary Date of Admission Resident Creating Document: LINDA BOWEN RESIDENT March 02, 2025 at 21:53 Date of Discharge: Mar 05, 2025 Labs/Diagnostic Data: Laboratory Results Test 03/05/25 09:04 03/04/25 05:12 03/03/25 01:45 03/03/25 00:50 Sodium Level 140 mmol/L (136-145) Potassium Level 4.0 mmol/L (3.5-5.1) Chloride Level 110 mmol/L (98-107) Carbon Dioxide Level 26 mmol/L (20-31) Anion Gap 4 (5-15) Blood Urea Nitrogen 9 mg/dL (9-23) Creatinine 0.66 mg/dL (0.550-1.02) Glomerular Filtration Rate Calc 90 mL/min (>90) BUN/Creatinine Ratio 13.6 (10.0-20.0) Serum Glucose 85 mg/dL (74-106) Calcium Level 8.6 mg/dL (8.7-10.4) Total Bilirubin 0.7 mg/dL (0.2-1.0) Aspartate Amino Transferase (AST) 82 U/L (13-40) Alanine Aminotransferase (ALT) 41 U/L (7-40) Alkaline Phosphatase 118 U/L (46-116) Total Protein 7.4 g/dL (5.7-8.2) Albumin 3.0 g/dL (3.2-4.8) White Blood Count 4.9 10^3/uL (4.4-10.8) Red Blood Count 4.05 10^6/uL (4.0-5.20) Hemoglobin 11.8 g/dL (12.2-16.2) Hematocrit 35.0 % (36.0-46.0) Mean Corpuscular Volume 86.4 fL (80.0-100.0) Mean Corpuscular Hemoglobin 29.1 pg (28.0-32.0) Mean Corpuscular Hemoglobin Concent 33.6 g/dL (32.0-36.0) Red Cell Distribution Width 16.9 % (11.8-14.3) Platelet Count 219 10^3/uL (140-450) Mean Platelet Volume 8.2 fL (6.9-10.8) Neutrophils (%) (Auto) 66.2 % (37.0-80.0) Lymphocytes (%) (Auto) 17.3 % (10.0-50.0) Monocytes (%) (Auto) 12.3 % (0.0-12.0) Eosinophils (%) (Auto) 3.8 % (0.0-7.0) Basophils (%) (Auto) 0.4 % (0.0-2.0) Neutrophils # (Auto) 3.3 10 ^3/uL (1.6-8.6) Lymphocytes # (Auto) 0.9 10 ^3/uL (0.4-5.4) Monocytes # (Auto) 0.6 10 ^3/uL (0-1.3) Eosinophils # (Auto) 0.2 10 ^3/uL (0-0.8) Basophils # (Auto) 0 10 ^3/uL (0-0.2) Nucleated Red Blood Cells 0.2 % Prothrombin Time 12.3 sec (9.3-11.8) Prothrombin Time INR 1.18 (0.9-1.15) Activated Partial Thromboplast Time 31.8 SEC (24.5-34.5) Influenza Type A Antigen Negative (Negative) Influenza Type B Antigen Negative (Negative) SARS-CoV-2 Antigen (Rapid) Negative (NEGATIVE) Test 03/02/25 22:31 03/02/25 21:05 03/02/25 19:24 03/02/25 18:39 Ammonia 15 umol/L (11-32) Creatine Kinase MB 3.7 ng/mL (0.0-5.3) Urine Color Yellow (Yellow) Urine Clarity Clear (Clear) Urine pH 6.0 (5.0-9.0) Urine Specific [place] 1.011 (1.001-1.035) Urine Protein Negative (Negative) Urine Ketones Negative (Negative) Urine Blood Negative /uL (Negative) Urine Nitrite Negative (Negative) Urine Bilirubin Negative (Negative) Urine Urobilinogen 2 mg/dL (Negative) Urine Leukocyte Esterase 3+ /uL (Negative) Urine RBC 1 /hpf (0 - 4) Urine Microscopic WBC 18 /HPF (0-5) Urine Squamous Epithelial Cells Few /hpf (<5) Urine Amorphous Crystals Few /hpf (None Seen) Urine Bacteria Few /hpf (None Seen) Urine Glucose Normal mg/dL (Normal) Urine Opiates Screen Neg (NEGATIVE) Urine Fentanyl Screen Neg (NEGATIVE) Urine Barbiturates Screen Neg (NEGATIVE) Urine Phencyclidine Screen Neg (NEGATIVE) Urine Amphetamines Screen Pos (NEGATIVE) Urine Benzodiazepines Screen Neg (NEGATIVE) Urine Cocaine Screen Neg (NEGATIVE) Urine Cannabinoids Screen Neg (NEGATIVE) Direct Bilirubin 0.5 mg/dL (<0.3) Troponin I High Sensitivity < 3 ng/L (</=34) C-Reactive Protein High Sensitivity 0.54 mg/dL (<1.0) Erythrocyte Sedimentation Rate 61 mm/hr (0-20) Magnesium Level 1.9 mg/dL (1.6-2.6) B-Type Natriuretic Peptide 18.52 pg/mL (0-100) Thyroid Stimulating Hormone (TSH) 1.25 uIU/mL (0.55-4.78) Test 03/02/25 16:34 POC Glucose 82 mg/dl (70-106) Other Laboratory Tests 03/05/25 09:04 03/04/25 05:12 Final Diagnosis/Problems List Chest pain, ACS ruled out Ruled out diastolic heart dysfunction History of autoimmune hepatitis with liver cirrhosis Constipation Possible gastritis Discharge Disposition: Home Discharge Instruct/Medications Diet: Cardiac 2g Na,low cholest Activity: Light activity Follow Up/Referral: Follow up with primary care physician within 7 days Medications: Per EMR Discharge Statement: "Patient was advised to return to the ER or call 911 if any headaches, dizziness, shortness of breath, chest pain, abdominal pain, bleeding, fevers, or worsening of medical condition. Patient was counseled about treatment plan, medications, possible side effects, patientverbalized understanding. All questions were answered to the best of my ability. This discharge took greater then 30 minutes in planning, reviewing documentation, counseling the patient, and discussing with other team members." ASSESSMENT ASSESSMENT Assessment Chest pain, ACS ruled out Ruled out diastolic heart dysfunction History of autoimmune hepatitis with liver cirrhosis Constipation Possible gastritis MINDY RAYA RESIDENT Mar 05, 2025 14:24
--- NOTE | 2025-03-05 16:23 | DVHDSRES ---
Discharge Summary Date of Admission Resident Creating Document: MINDY RAYA RESIDENT March 02, 2025 at 21:53 Date of Discharge: Mar 05, 2025 Labs/Diagnostic Data: Laboratory Results Test 03/05/25 09:04 03/04/25 05:12 03/03/25 01:45 03/03/25 00:50 Sodium Level 140 mmol/L (136-145) Potassium Level 4.0 mmol/L (3.5-5.1) Chloride Level 110 mmol/L (98-107) Carbon Dioxide Level 26 mmol/L (20-31) Anion Gap 4 (5-15) Blood Urea Nitrogen 9 mg/dL (9-23) Creatinine 0.66 mg/dL (0.550-1.02) Glomerular Filtration Rate Calc 90 mL/min (>90) BUN/Creatinine Ratio 13.6 (10.0-20.0) Serum Glucose 85 mg/dL (74-106) Calcium Level 8.6 mg/dL (8.7-10.4) Total Bilirubin 0.7 mg/dL (0.2-1.0) Aspartate Amino Transferase (AST) 82 U/L (13-40) Alanine Aminotransferase (ALT) 41 U/L (7-40) Alkaline Phosphatase 118 U/L (46-116) Total Protein 7.4 g/dL (5.7-8.2) Albumin 3.0 g/dL (3.2-4.8) White Blood Count 4.9 10^3/uL (4.4-10.8) Red Blood Count 4.05 10^6/uL (4.0-5.20) Hemoglobin 11.8 g/dL (12.2-16.2) Hematocrit 35.0 % (36.0-46.0) Mean Corpuscular Volume 86.4 fL (80.0-100.0) Mean Corpuscular Hemoglobin 29.1 pg (28.0-32.0) Mean Corpuscular Hemoglobin Concent 33.6 g/dL (32.0-36.0) Red Cell Distribution Width 16.9 % (11.8-14.3) Platelet Count 219 10^3/uL (140-450) Mean Platelet Volume 8.2 fL (6.9-10.8) Neutrophils (%) (Auto) 66.2 % (37.0-80.0) Lymphocytes (%) (Auto) 17.3 % (10.0-50.0) Monocytes (%) (Auto) 12.3 % (0.0-12.0) Eosinophils (%) (Auto) 3.8 % (0.0-7.0) Basophils (%) (Auto) 0.4 % (0.0-2.0) Neutrophils # (Auto) 3.3 10 ^3/uL (1.6-8.6) Lymphocytes # (Auto) 0.9 10 ^3/uL (0.4-5.4) Monocytes # (Auto) 0.6 10 ^3/uL (0-1.3) Eosinophils # (Auto) 0.2 10 ^3/uL (0-0.8) Basophils # (Auto) 0 10 ^3/uL (0-0.2) Nucleated Red Blood Cells 0.2 % Prothrombin Time 12.3 sec (9.3-11.8) Prothrombin Time INR 1.18 (0.9-1.15) Activated Partial Thromboplast Time 31.8 SEC (24.5-34.5) Influenza Type A Antigen Negative (Negative) Influenza Type B Antigen Negative (Negative) SARS-CoV-2 Antigen (Rapid) Negative (NEGATIVE) Test 03/02/25 22:31 03/02/25 21:05 03/02/25 19:24 03/02/25 18:39 Ammonia 15 umol/L (11-32) Creatine Kinase MB 3.7 ng/mL (0.0-5.3) Urine Color Yellow (Yellow) Urine Clarity Clear (Clear) Urine pH 6.0 (5.0-9.0) Urine Specific [place] 1.011 (1.001-1.035) Urine Protein Negative (Negative) Urine Ketones Negative (Negative) Urine Blood Negative /uL (Negative) Urine Nitrite Negative (Negative) Urine Bilirubin Negative (Negative) Urine Urobilinogen 2 mg/dL (Negative) Urine Leukocyte Esterase 3+ /uL (Negative) Urine RBC 1 /hpf (0 - 4) Urine Microscopic WBC 18 /HPF (0-5) Urine Squamous Epithelial Cells Few /hpf (<5) Urine Amorphous Crystals Few /hpf (None Seen) Urine Bacteria Few /hpf (None Seen) Urine Glucose Normal mg/dL (Normal) Urine Opiates Screen Neg (NEGATIVE) Urine Fentanyl Screen Neg (NEGATIVE) Urine Barbiturates Screen Neg (NEGATIVE) Urine Phencyclidine Screen Neg (NEGATIVE) Urine Amphetamines Screen Pos (NEGATIVE) Urine Benzodiazepines Screen Neg (NEGATIVE) Urine Cocaine Screen Neg (NEGATIVE) Urine Cannabinoids Screen Neg (NEGATIVE) Direct Bilirubin 0.5 mg/dL (<0.3) Troponin I High Sensitivity < 3 ng/L (</=34) C-Reactive Protein High Sensitivity 0.54 mg/dL (<1.0) Erythrocyte Sedimentation Rate 61 mm/hr (0-20) Magnesium Level 1.9 mg/dL (1.6-2.6) B-Type Natriuretic Peptide 18.52 pg/mL (0-100) Thyroid Stimulating Hormone (TSH) 1.25 uIU/mL (0.55-4.78) Test 03/02/25 16:34 POC Glucose 82 mg/dl (70-106) Other Laboratory Tests 03/05/25 09:04 03/04/25 05:12 Brief Hx & Hospital Course: Patient is 79 years old female with past medical history of rheumatoid arthritis, 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 As per patient she has been having feeling weak for last 3 weeks tired and fatigued, patient also endorsed that she has been having chest pain for last 3 weeks initially it was sharp, 10/10, radiating to the neck and left arm, today it was 3/10, no aggravating or relieving factor. On further inquiry patient also endorsed shortness of breast for last 3 weeks increased with the exertion. Patient also reported dry cough for last 3 weeks. Patient denied any fever, diarrhea, sick contact, weight change, dysarthria. . Initial lab workup revealed Troponin and BNP with a normal limit. AST 88, ALT 43, alkaline phosphatase 149, ESR 61, Chest x-ray no acute cardiopulmonary disease. Ultrasound of the gallbladder revealed-Mild hepatomegaly. S/p cholecystectomy. Dilated common bile duct measuring up to 15 mm which may be within normal limits. Negative for flu and COVID 19. During the hospitalization, EKG was completed which showed NSR. Troponin unremarkable. IV Lasix was given. Echocardiogram was completed which showed LVEF 70%. LVH criteria. Echocardiogram completed, showed LVEF 70%. Sigmoid septum/LVH criteria. Mild aortic stenosis. . Chest x-ray showed no acute abnormality. Patient was kept on telemetry unit, no events were recorded. ACS was ruled out. Heart failure was ruled out. We continued patient's home medication azathioprine lactulose, ursodiol and Carafate. Liver ultrasound showed Mild hepatomegaly. S/p cholecystectomy. Dilated common bile duct measuring up to 15 mm which may be within normal limits, no ascites was visualized. Patient was strongly advised to follow up with block cleaner for workup for possible hepatopulmonary syndrome 03/05-patient is hemodynamically stable, vitally stable, no acute distress. Therefore she has been discharged home with the recommendations to follow up with primary care physician within 7 days, continue her home medications. Discharge plan: Follow up with primary care physician within 7 days Follow up with block cleaner for workup for possible hepatopulmonary syndrome Continue home medications Operations or Procedures PATIENT: GOLDEN GRIDERCT: [id number]: [id number] : 1945 [facility] AGE / SEX: 79 / F ADM STATUS: ADM IN SERVICE 52 ORDERING PHYSICIAN: MIGDALIA PORTER RESIDENT PROCEDURE(s): ECIDC - ECHO 2D MODE CARDIAC DOP REASON: HF ORDER NUMBER(s): [id number], ACCESSION NUMBER(s): [id number] APPROVED REPORT EXAM: Two-dimensional and M-mode echocardiogram with Doppler and color Doppler. Blood Pressure: 94/53 mmHg INDICATION HF RISK FACTORS Height: 5'2", Weight: 136 DIMENSIONS LVDd 3.5 (3.8-5.7cm) LA (2D) 3.2 (1.9-4.0cm) Aortic Root 3.4 (2.0- 3.7cm) LVDs 2.4 (2.5-4.0cm) LA (MM) (1.9-4.0cm) Aortic Cusp Exc 0.8 (1.5- 2.0cm) EF (%) 60.0 (55-70%) Rt. Atrium 3.7 (1.9-4.0cm) Asc. Aorta cm IVSd 1.0 (0.7-1.1cm) RV (D) (1.8-2.4cm) PWd 0.9 (0.7-1.1cm) Mitral Valve Mitral Mitral Stenosis E wave 0.50m/s MV Mean GR. mmHg A wave 0.95m/s MV Peak GR. mmHg E/A ratio 0.5 2D MVA cm2 DECEL Time 375ms PRESS 1/2 Time ms Aortic Valve Aortic Valve Aortic Stenosis V1 1.19m/s AO Mean GR. 12mmHg V2 2.28m/s AO Peak GR. 21mmHg LVOT Diameter 1.9 (1.8-2.4cm) Doppler NIVIA 1.48cm2 2D NIVIA 1.47cm2 Pulmonic Valve V2 0.96m/s Tricuspid Valve TR Velocity 2.31m/s RVSP 29mmHg Other Information Technically limited study due to body habitus. Conclusion lvef 70% sigmoid septum/ lvh normal rv function mild aortic stenosis SIGNED BY: SANTOS STEIN MD SIGNED DATE/TIME: 03/03/25 1422 CC: ORDERING PHYSICIAN: LINDA BOWEN PROCEDURE(s): ABDL - ABDOMEN LIMITED REASON: ascitis ORDER NUMBER(s): [id number], ACCESSION NUMBER(s): [id number] ULTRASOUND ABDOMEN limited, 4 QUADRANTS INDICATION: ascitis Evaluate for ascites. TECHNIQUE: The four quadrants of the abdomen were scanned in lechuga-scale to assess for the presence of ascites. No solid organ assessment was performed. FINDINGS/IMPRESSIONS: No ascites visualized at this time ATED BY: DEVAUGHN MCKINNEY Jr., DO DICTATED DATE/TIME: 03/04/25 1510 SIGNED BY: DEVAUGHN MCKINNEY Jr., DO SIGNED DATE/TIME: 03/04/25 1510 CC: Condition at Discharge: Stable Final Diagnosis/Problems List CHEST PAIN ACS RULED OUT PROBABLE HEPATOPULMONARY SYNDROME RULED OUT DIASTOLIC HEART DYSFUNCTION HISTORY OF AUTOIMMUNE HEPATITIS WITH LIVER CIRRHOSIS CONSTIPATION POSSBILE GASTRITIS COPD-no exacerbation-outpatient PFT advised Tobacco use dependence Discharge Disposition: Home Discharge Instruct/Medications Diet: Cardiac 2g Na,low cholest Activity: Light activity Follow Up/Referral: Follow up with primary care physician within 7 days Medications: Per EMR Discharge Statement: "Patient was advised to return to the ER or call 911 if any headaches, dizziness, shortness of breath, chest pain, abdominal pain, bleeding, fevers, or worsening of medical condition. Patient was counseled about treatment plan, medications, possible side effects, patientverbalized understanding. All questions were answered to the best of my ability. This discharge took greater then 30 minutes in planning, reviewing documentation, counseling the patient, and discussing with other team members." ASSESSMENT ASSESSMENT Assessment CHEST PAIN ACS RULED OUT RULED OUT DIASTOLIC HEART DYSFUNCTION HISTORY OF AUTOIMMUNE HEPATITIS WITH LIVER CIRRHOSIS CONSTIPATION POSSBILE GASTRITIS Date of Service: Mar 05, 2025 Billing Provider: APOORVA SPENCE MD Common Visit Codes: [id number] DISCH DAY >30min MINDY RAYA RESIDENT Mar 05, 2025 16:23 APOORVA SPENCE MD Mar 07, 2025 08:55
[2025-03-06 13:08] LABS: Anti-Nuclear Antibody Direct Negative (Negative)
== END 2025-03-05 17:00 | disposition home or self-care (01) | DRG 392 ==
LOC: ER 16:12 → OVERFLOW 21:53 → TELE-CENTR 23:54
PROVIDERS: ADMIT Student in an Organized Health Care Education/Training Program; ATTEND Emergency Medicine
DX: K29.70 Gastritis, unspecified, without bleeding (principal); G90.89 Other disorders of autonomic nervous system; I51.3 Intracardiac thrombosis, not elsewhere classified; K75.4 Autoimmune hepatitis; K74.60 Unspecified cirrhosis of liver; K83.8 Other specified diseases of biliary tract; M06.9 Rheumatoid arthritis, unspecified; R16.0 Hepatomegaly, not elsewhere classified; K59.00 Constipation, unspecified; R07.9 Chest pain, unspecified; F17.210 Nicotine dependence, cigarettes, uncomplicated; Z20.822 Contact with and (suspected) exposure to COVID-19; K76.81 Hepatopulmonary syndrome; F90.9 Attention-deficit hyperactivity disorder, unspecified type; Z90.49 Acquired absence of other specified parts of digestive tract; Z91.09 Other allergy status, other than to drugs and biological substances; Z83.3 Family history of diabetes mellitus
CPT/HCPCS: 36415; 71046; 76705; 80048; 80053; 80076; 80307; 81001; 82140; 82553; 82962; 83735; 83880; 84443; 84484; 85025; 85610; 85652; 85730; 86038; 86141; 86850; 86900; 86901; 87086; 87426; 87804; 93005; 93306; 97163; G0378